=== PATIENT | male | born 1985 | race Caucasian/White ===

== ENCOUNTER 2017-06-29 19:13 | Inpatient (IN) | payer MEDICARE, MEDICAID ==
[~2017-06-29] VITALS: Ht 170.2 cm; Wt 75.0 kg
[~2017-06-29 19:13] MED LIST: DIVA125T3 PO
[2017-06-29] MEDS ORDERED: normal saline 1000ml 1,000 ML IV ONE ×2 (19:40→21:15)
[2017-06-29] MEDS ORDERED: levetiracetam inj 1,000 MG in normal saline 100ml IV soln 90 ML IV ONE (19:40)
[2017-06-29 19:59] LABS: BASOPHILS # (AUTO) 0.1 X10'3 (0-0.2); BASOPHILS % (AUTO) 0.9 % (0-1); EOSINOPHILS # (AUTO) 0.3 X10'3 (0-0.9); EOSINOPHILS % (AUTO) 1.9 % (0-6); HEMATOCRIT 44.9 % (42.0-52.0); HEMOGLOBIN 15.4 g/dl (14.0-17.9); LYMPHOCYTES % (AUTO) 6.6 % (21-51); MEAN CORPUSCULAR HGB CONC 34.2 % (33.0-36.5); MEAN CORPUSCULAR VOLUME 93.8 FL (78-98); MEAN PLATELET VOLUME 8.5 FL (7.4-10.4); MONOCYTES # (AUTO) 0.2 X10'3 (0-0.9); MONOCYTES % (AUTO) 1.3 % (2-12); NEUTROPHILS # (AUTO) 14.1 X10'3 (1.8-7.7); NEUTROPHILS % (AUTO) 89.3 % (42-75); PLATELET COUNT 234 X10'3 (140-440); RED BLOOD COUNT 4.79 X10'6 (4.70-6.10); RED CELL DISTRIBUTION WIDTH 12.8 % (11.5-14.5); WHITE BLOOD COUNT 15.8 X10'3 (4.5-11.0)
[2017-06-29 20:10] LABS: PROTHROMBIN TIME 10.7 SECONDS (9.0-12.0)
[2017-06-29] MEDS ORDERED: LORazepam 2 mg/ml vial IV ONE ×2 (20:10→21:15)
[2017-06-29 20:15] LABS: ALANINE AMINOTRANSFERASE 21 U/L (12-78); ALBUMIN 4.6 G/DL (3.4-5.0); ALBUMIN/GLOBULIN RATIO 1.2 (1.1-1.5); ALKALINE PHOSPHATASE 57 IU/L (46-116); ANION GAP 22 (8-16); ASPARTATE AMINO TRANSFERASE 19 U/L (10-37); BILIRUBIN,TOTAL 0.3 MG/DL (0.1-1.0); BLOOD UREA NITROGEN 14 MG/DL (7-18); BUN/CREATININE RATIO 12.2 (5.4-32.0); CALCIUM 8.9 MG/DL (8.5-10.1); CHLORIDE 102 MMOL/L (99-107); CREATINE KINASE 132 U/L (39-308); CREATININE 1.15 MG/DL (0.60-1.10); ETHANOL < 0.010 GM/DL (0.0-0.010); GLUCOSE 223 MG/DL (70-104); MAGNESIUM 2.5 MG/DL (1.5-2.4); PHOSPHORUS 3.1 MG/DL (2.3-4.5); POTASSIUM 3.6 MMOL/L (3.5-5.1); SODIUM 140 MMOL/L (135-145); TOTAL CARBON DIOXIDE 16.4 MMOL/L (24-32); TOTAL PROTEIN 8.3 G/DL (6.4-8.2); eGFR 73 ML/MIN
[2017-06-29 21:37] LABS: CLARITY,URINE SLIGHTLY CLOUDY (Clear); COLOR,URINE YELLOW (Yellow); GLUCOSE, URINE NEGATIVE (Neg); KETONES,URINE TRACE mg/dl (Neg); LEUKOCYTE ESTERASE ,URINE NEGATIVE (Neg); NITRITES, URINE NEGATIVE (Neg); OCCULT BLOOD,URINE SMALL (Neg); PH,URINE 5.5 (4.8-8.0); PROTEIN,URINE 30 mg/dl (Neg); UROBILINOGEN,URINE 0.2 E.U/dL (0.2-1.0)
[2017-06-29 21:42] LABS: BASOPHILS % (AUTO) 0 % (0-1); EOSINOPHILS # (AUTO) 0.3 X10'3 (0-0.9); EOSINOPHILS % (AUTO) 1.4 % (0-6); HEMATOCRIT 40.6 % (42.0-52.0); HEMOGLOBIN 14.1 g/dl (14.0-17.9); LYMPHOCYTES # (AUTO) 0.9 X10'3 (1.1-4.8); LYMPHOCYTES % (AUTO) 4.2 % (21-51); MEAN CORPUSCULAR HEMOGLOBIN 32.2 PG (27.0-31.0); MEAN CORPUSCULAR HGB CONC 34.7 % (33.0-36.5); MEAN CORPUSCULAR VOLUME 92.8 FL (78-98); MONOCYTES # (AUTO) 1.1 X10'3 (0-0.9); MONOCYTES % (AUTO) 5.2 % (2-12); NEUTROPHILS # (AUTO) 19.5 X10'3 (1.8-7.7); NEUTROPHILS % (AUTO) 89.2 % (42-75); PLATELET COUNT 200 X10'3 (140-440); RED BLOOD COUNT 4.37 X10'6 (4.70-6.10); RED CELL DISTRIBUTION WIDTH 12.7 % (11.5-14.5); WHITE BLOOD COUNT 21.9 X10'3 (4.5-11.0)
[2017-06-29 21:48] LABS: URINE AMPHETAMINE SCREEN NEGATIVE (Neg); URINE BARBITUATE SCREEN NEGATIVE (Neg); URINE BENZODIAZEPINES SCREEN POSITIVE (Neg); URINE CANNABINOID SCREEN POSITIVE (Neg); URINE COCAINE SCREEN NEGATIVE (Neg); URINE METHADONE SCREEN NEGATIVE (Neg); URINE OPIATE SCREEN NEGATIVE (Neg); URINE PHENCYCLIDINE SCREEN NEGATIVE (Neg)
[2017-06-29 21:50] LABS: AMORPHOUS URATES 2+; BACTERIA,URINE FEW /HPF (Neg); RBC,URINE 0-2 /HPF (0-2); SQUAMOUS EPITHELIAL CELL,UR FEW /LPF (FEW); UA COLLECTION TYPE STRAIGHT CATH; WBC,URINE NONE SEEN /HPF (0-4)
[2017-06-29] MEDS ORDERED: dexamethasone sod phosphate 10mg/ml inj IV STA (21:57)
[2017-06-29] MEDS ORDERED: propofol 1000mg/100ml bottle 100 ML IV PRN (21:57)
[2017-06-29] MEDS ORDERED: CefTRIAXone 2gm/NS 100ml IVPB 100 ML IV ONE (22:00)
[2017-06-29] MEDS ORDERED: normal saline 1000ML IV soln IVB ONE (22:55)
[2017-06-29] MEDS ORDERED: acetaminophen 325mg rectal suppository RC ONE (23:15)
[2017-06-29] MEDS ORDERED: acetaminophen 650mg rectal suppository RC ONE (23:20)
[2017-06-29 23:37] LABS: C-REACTIVE PROTEIN 0.13 MG/DL (0.0-0.5)
[2017-06-30] VITALS (19 sets, daily range): BP systolic 92–125; BP diastolic 44–68
[2017-06-30 00:37] LABS: APPEARANCE,CSF CLEAR; CSF RBC 170 /CU MM (0); CSF SUPERNATANT COLOR COLORLESS; CSF VOLUME 6 ML; CSF WBC CT 3 /CU MM (0-5); LYMPHOCYTES,CSF 15 % (40-80); MONOCYTES,CSF 4 % (15-45); NEUTRO,CSF 81 % (0-6); TUBE# COUNTED 1
[2017-06-30 00:38] LABS: APPEARANCE,CSF CLEAR; CSF RBC 209 /CU MM (0); CSF SUPERNATANT COLOR COLORLESS; CSF VOLUME 6 ML; CSF WBC CT 5 /CU MM (0-5); LYMPHOCYTES,CSF 10 % (40-80); MONOCYTES,CSF 3 % (15-45); NEUTRO,CSF 87 % (0-6); TUBE# COUNTED 4
[2017-06-30 00:49] LABS: GLUCOSE,CSF 90 MG/DL (40-75); TOTAL PROTEIN,CSF 73 MG/DL (15-45)
[2017-06-30 00:54] LABS: ACETAMINOPHEN < 2.0 UG/ML (10-30); VALPROATE < 3.0 UG/ML (50-100)
[2017-06-30] MEDS ORDERED: potassium Cl 40MEQ/NS 500ml 500 ML IV PRN ×2 (01:35)
[2017-06-30] MEDS ORDERED: sodium phosphate inj. 15 MMOL in dextrose 5%-water 150 ML IV PRN (01:35)
[2017-06-30] MEDS ORDERED: magnesium 4gm in 100ml NS 100 ML IV PRN (01:35)
[2017-06-30] MEDS ORDERED: magnesium 2GM in 50ml NS 50 ML IV PRN (01:35)
[2017-06-30] MEDS ORDERED: sodium phosphate inj. 30 MMOL in dextrose 5%-water 250 ML IV PRN (01:35)
[2017-06-30] MEDS: K, MAG and/or Phos replacement - Verify level? MC SCH ×2 (01:35→07:14)
[2017-06-30] MEDS ORDERED: vancomycin inj. 750 MG in normal saline 250ml IV soln 250 ML IV SCH (02:00)
[2017-06-30] MEDS ORDERED: vancomycin/NS 1 GM ADD-VANTAGE 250 ML IV ONE (02:10)
[2017-06-30] MEDS: normal saline 1000ml 1,000 ML IV SCH ×2 (02:16→14:55)
[2017-06-30] MEDS ORDERED: acyclovir 1 GM inj IV SCH (08:00)
[2017-06-30] MEDS ORDERED: pantoprazole 40 MG vial IV SCH (08:00)
[2017-06-30] MEDS: levetiracetam inj 500 MG in normal saline 100ml IV soln 95 ML IV SCH ×2 (09:57→20:19)
[2017-06-30] MEDS: NORMAL SALINE IV SCH ×2 (10:15→15:37)
[2017-06-30] MEDS: ACYCLOVIR IV SCH ×2 (10:15→15:37)
[2017-06-30] MEDS: vancomycin/NS 1 GM ADD-VANTAGE 250 ML IV SCH ×2 (11:13→17:30)
[2017-06-30] MEDS: CefTRIAXone 2gm/NS 100ml IVPB 100 ML IV SCH ×2 (12:43→20:19)
[2017-06-30] MEDS ORDERED: gadopentetate dimeglumine 7.5 MMOL/15 ML syringe ONE (16:13)
[2017-06-30 19:46] LABS: BASOPHILS # (AUTO) 0.1 X10'3 (0-0.2); BASOPHILS % (AUTO) 0.5 % (0-1); EOSINOPHILS # (AUTO) 0.1 X10'3 (0-0.9); EOSINOPHILS % (AUTO) 0.6 % (0-6); HEMATOCRIT 35.7 % (42.0-52.0); HEMOGLOBIN 12.5 g/dl (14.0-17.9); LYMPHOCYTES # (AUTO) 1.8 X10'3 (1.1-4.8); LYMPHOCYTES % (AUTO) 11.2 % (21-51); MEAN CORPUSCULAR HEMOGLOBIN 32.5 PG (27.0-31.0); MEAN CORPUSCULAR VOLUME 92.9 FL (78-98); MEAN PLATELET VOLUME 8.9 FL (7.4-10.4); MONOCYTES # (AUTO) 1.2 X10'3 (0-0.9); MONOCYTES % (AUTO) 7.4 % (2-12); NEUTROPHILS % (AUTO) 80.3 % (42-75); PLATELET COUNT 175 X10'3 (140-440); RED BLOOD COUNT 3.85 X10'6 (4.70-6.10); WHITE BLOOD COUNT 16.2 X10'3 (4.5-11.0)
[2017-06-30 20:03] LABS: ALANINE AMINOTRANSFERASE 21 U/L (12-78); ALBUMIN 3.3 G/DL (3.4-5.0); ALBUMIN/GLOBULIN RATIO 1.1 (1.1-1.5); ALKALINE PHOSPHATASE 40 IU/L (46-116); ANION GAP 9 (8-16); ASPARTATE AMINO TRANSFERASE 24 U/L (10-37); BILIRUBIN,TOTAL 0.5 MG/DL (0.1-1.0); BLOOD UREA NITROGEN 17 MG/DL (7-18); BUN/CREATININE RATIO 22.1 (5.4-32.0); CALCIUM 8.1 MG/DL (8.5-10.1); CHLORIDE 111 MMOL/L (99-107); CREATININE 0.77 MG/DL (0.60-1.10); GLUCOSE 93 MG/DL (70-104); POTASSIUM 3.5 MMOL/L (3.5-5.1); SODIUM 146 MMOL/L (135-145); TOTAL CARBON DIOXIDE 26.1 MMOL/L (24-32); TOTAL PROTEIN 6.3 G/DL (6.4-8.2); eGFR > 90 ML/MIN
[2017-06-30] MEDS ORDERED: normal saline 1000ml 1,000 ML IVB ONE (23:15)
[2017-07-01] VITALS: BP 149/89
[2017-07-01] MEDS ORDERED: VANCOMYCIN LEVEL IV NR (01:30)
[2017-07-01 02:39] LABS: C-REACTIVE PROTEIN 0.86 MG/DL (0.0-0.5)
[2017-07-01] MEDS ORDERED: lactobacillus rhamnosus 10,000 MMU CELLS/CAPSULE PO SCH (08:00)
[2017-07-01 14:10] LABS: HIV ANTIBODY 1&2 RAPID NON-REACTIVE (Neg)
[2017-07-03 11:17] LABS: VDRL, CSF Non Reactive (Non Rea:<1:1)
[2017-07-03 19:11] LABS: HSV 1 PCR Negative (Negative); HSV 2 PCR Negative (Negative)
== END 2017-07-01 00:15 | disposition left against medical advice (07) | DRG 97 ==
LOC: ER 19:13 → ED HOLD 06-30 01:35 → ICU 2S 06-30 02:40
PROVIDERS: ADMIT Internal Medicine Critical Care Medicine; ATTEND Internal Medicine Critical Care Medicine
PROC: 009U3ZZ Drainage of Spinal Canal, Percutaneous Approach (ICD-10-PCS; principal; 2017-06-29)
PROC: BW38YZZ Magnetic Resonance Imaging (MRI) of Head using Other Contrast (ICD-10-PCS; 2017-06-30)
DX: G03.9 Meningitis, unspecified (principal); B00.4 Herpesviral encephalitis; G93.89 Other specified disorders of brain; Z53.21 Procedure and treatment not carried out due to patient leaving prior to being seen by health care provider; G89.29 Other chronic pain; F32.9 Major depressive disorder, single episode, unspecified; F41.9 Anxiety disorder, unspecified; G40.909 Epilepsy, unspecified, not intractable, without status epilepticus; F12.90 Cannabis use, unspecified, uncomplicated; Z78.1 Physical restraint status; Z88.0 Allergy status to penicillin; Z88.2 Allergy status to sulfonamides; Z88.8 Allergy status to other drugs, medicaments and biological substances; Z91.030 Bee allergy status; Z79.899 Other long term (current) drug therapy; Z86.73 Personal history of transient ischemic attack (TIA), and cerebral infarction without residual deficits
CPT/HCPCS: 36415; 62270; 70450; 70544; 70553; 71045; 80053; 80164; 80305; 80320; 80329; 81001; 82550; 82945; 82948; 83605; 83735; 84100; 84145; 84157; 84439; 84443; 85025; 85610; 85651; 86140; 86592; 86703; 86788; 86789; 87015; 87040; 87070; 87210; 87529; 87899; 89051; 93005; 96361; 96365; 96375; 96376; 97162; 97530; 99152; 99153; 99291; A4353; A6213; A9579; C9113; J0133; J0696; J1100; J1953; J2704; J3370; J7030

== ENCOUNTER 2018-07-12 04:51 | Emergency (ER) | payer MEDICARE, MEDICAID ==
[~2018-07-12] VITALS: Ht 170.2 cm; Wt 59.1 kg
[~2018-07-12 04:51] MED LIST changes: -DIVA125T3 PO; +LEVE10002 PO
[2018-07-12] MEDS ORDERED: LORazepam 2 mg/ml vial IV ONE (05:10)
[2018-07-12 05:23] LABS: BASOPHILS # (AUTO) 0.1 X10'3 (0-0.2); BASOPHILS % (AUTO) 0.9 % (0-1); EOSINOPHILS # (AUTO) 0.2 X10'3 (0-0.9); EOSINOPHILS % (AUTO) 2.3 % (0-6); HEMATOCRIT 43.8 % (42.0-52.0); HEMOGLOBIN 15.4 g/dl (14.0-17.9); LYMPHOCYTES # (AUTO) 2.5 X10'3 (1.1-4.8); LYMPHOCYTES % (AUTO) 28.9 % (21-51); MEAN CORPUSCULAR HEMOGLOBIN 32.8 PG (27.0-31.0); MEAN CORPUSCULAR HGB CONC 35.1 g/dL (33.0-36.5); MEAN CORPUSCULAR VOLUME 93.5 FL (78-98); MEAN PLATELET VOLUME 8.8 FL (7.4-10.4); MONOCYTES # (AUTO) 0.7 X10'3 (0-0.9); MONOCYTES % (AUTO) 7.6 % (2-12); NEUTROPHILS # (AUTO) 5.2 X10'3 (1.8-7.7); NEUTROPHILS % (AUTO) 60.3 % (42-75); PLATELET COUNT 243 X10'3 (140-440); RED BLOOD COUNT 4.69 X10'6 (4.70-6.10); RED CELL DISTRIBUTION WIDTH 12.6 % (11.5-14.5); WHITE BLOOD COUNT 8.6 X10'3 (4.5-11.0)
[2018-07-12 05:28] LABS: ALANINE AMINOTRANSFERASE 21 U/L (12-78); ALBUMIN 4.1 G/DL (3.4-5.0); ALBUMIN/GLOBULIN RATIO 1.1 (1.1-1.5); ALKALINE PHOSPHATASE 64 IU/L (46-116); ANION GAP 11 (8-16); ASPARTATE AMINO TRANSFERASE 19 U/L (10-37); BILIRUBIN,TOTAL 0.5 MG/DL (0.1-1.0); BLOOD UREA NITROGEN 18 MG/DL (7-18); BUN/CREATININE RATIO 15.5 (5.4-32.0); CALCIUM 9.4 MG/DL (8.5-10.1); CHLORIDE 104 MMOL/L (99-107); CREATININE 1.16 MG/DL (0.60-1.10); GLUCOSE 142 MG/DL (70-104); POTASSIUM 3.4 MMOL/L (3.5-5.1); SODIUM 142 MMOL/L (135-145); TOTAL CARBON DIOXIDE 27.4 MMOL/L (24-32); TOTAL PROTEIN 7.8 G/DL (6.4-8.2); eGFR 72 ML/MIN
[2018-07-12 05:29] LABS: INR 1.1 INR; PROTHROMBIN TIME 10.7 SECONDS (9.0-12.0)
[2018-07-12 05:38] LABS: LIPASE 238 U/L (73-393)
[2018-07-12 06:09] VITALS: BP 100/58
== END 2018-07-12 06:13 | disposition home or self-care (01) ==
LOC: ER 04:52
DX: R10.84 Generalized abdominal pain (principal); R11.2 Nausea with vomiting, unspecified; G89.29 Other chronic pain; F17.200 Nicotine dependence, unspecified, uncomplicated; F12.90 Cannabis use, unspecified, uncomplicated; F15.90 Other stimulant use, unspecified, uncomplicated; Z56.0 Unemployment, unspecified; Z88.1 Allergy status to other antibiotic agents; Z88.0 Allergy status to penicillin; Z88.2 Allergy status to sulfonamides
CPT/HCPCS: 36415; 80053; 83690; 85025; 85610; 93005; 96374; 99284; J2060

== ENCOUNTER 2018-07-31 07:54 | Emergency (ER) | payer MEDICARE, MEDICAID ==
[~2018-07-31] VITALS: Ht 170.2 cm; Wt 61.0 kg
[2018-07-31 08:04] VITALS: BP 119/83
[2018-07-31 10:13] LABS: BASOPHILS # (AUTO) 0.1 X10'3 (0-0.2); BASOPHILS % (AUTO) 0.9 % (0-1); EOSINOPHILS # (AUTO) 0.2 X10'3 (0-0.9); EOSINOPHILS % (AUTO) 2.1 % (0-6); HEMATOCRIT 45.7 % (42.0-52.0); HEMOGLOBIN 15.6 g/dl (14.0-17.9); LYMPHOCYTES # (AUTO) 1.6 X10'3 (1.1-4.8); LYMPHOCYTES % (AUTO) 19.9 % (21-51); MEAN CORPUSCULAR HEMOGLOBIN 32.3 PG (27.0-31.0); MEAN CORPUSCULAR HGB CONC 34.2 g/dL (33.0-36.5); MEAN CORPUSCULAR VOLUME 94.6 FL (78-98); MEAN PLATELET VOLUME 8.3 FL (7.4-10.4); MONOCYTES # (AUTO) 0.5 X10'3 (0-0.9); MONOCYTES % (AUTO) 6.8 % (2-12); NEUTROPHILS # (AUTO) 5.5 X10'3 (1.8-7.7); NEUTROPHILS % (AUTO) 70.3 % (42-75); PLATELET COUNT 274 X10'3 (140-440); RED BLOOD COUNT 4.83 X10'6 (4.70-6.10); RED CELL DISTRIBUTION WIDTH 12.8 % (11.5-14.5); WHITE BLOOD COUNT 7.9 X10'3 (4.5-11.0)
[2018-07-31] MEDS ORDERED: TETanus/Pertussis (Acell)/Diphther VAC/PF (Tdap-Adult) 0.5ml syringe IM ONE (10:20)
[2018-07-31 10:31] LABS: PARTIAL THROMBOPLASTIN TIME 30 SECONDS (22-32); PROTHROMBIN TIME 10.2 SECONDS (9.0-12.0)
[2018-07-31 10:53] LABS: CHLORIDE 105 MMOL/L (99-107); POTASSIUM 4.1 MMOL/L (3.5-5.1)
[2018-07-31 11:34] LABS: ALANINE AMINOTRANSFERASE 35 U/L (12-78); ALBUMIN/GLOBULIN RATIO 1.2 (1.1-1.5); ALKALINE PHOSPHATASE 62 IU/L (46-116); ANION GAP 9 (8-16); ASPARTATE AMINO TRANSFERASE 22 U/L (10-37); BILIRUBIN,TOTAL 0.4 MG/DL (0.1-1.0); BLOOD UREA NITROGEN 14 MG/DL (7-18); BUN/CREATININE RATIO 18.7 (5.4-32.0); CALCIUM 8.7 MG/DL (8.5-10.1); CREATININE 0.75 MG/DL (0.60-1.10); GLUCOSE 97 MG/DL (70-104); SODIUM 139 MMOL/L (135-145); TOTAL CARBON DIOXIDE 25.3 MMOL/L (24-32); TOTAL PROTEIN 7.4 G/DL (6.4-8.2); eGFR > 90 ML/MIN
== END 2018-07-31 11:27 | disposition home or self-care (01) ==
LOC: ER 07:55
DX: S01.112A Laceration without foreign body of left eyelid and periocular area, initial encounter (principal); R56.9 Unspecified convulsions; R79.1 Abnormal coagulation profile; G89.29 Other chronic pain; F12.90 Cannabis use, unspecified, uncomplicated; F15.90 Other stimulant use, unspecified, uncomplicated; Z88.0 Allergy status to penicillin; Z88.2 Allergy status to sulfonamides; Z91.030 Bee allergy status; Z56.0 Unemployment, unspecified; Z79.899 Other long term (current) drug therapy; Z87.19 Personal history of other diseases of the digestive system; Z98.890 Other specified postprocedural states; Z86.14 Personal history of Methicillin resistant Staphylococcus aureus infection; W22.8XXA Striking against or struck by other objects, initial encounter; Y93.89 Activity, other specified; Y92.89 Other specified places as the place of occurrence of the external cause; Y99.8 Other external cause status
CPT/HCPCS: 12011; 36415; 80053; 85025; 85610; 85730; 90471; 90715; 93005; 99284

== ENCOUNTER 2018-08-08 01:54 | Emergency (ER) | payer MEDICARE, MEDICAID ==
[~2018-08-08] VITALS: Ht 170.2 cm; Wt 60.0 kg
[2018-08-08 02:05] VITALS: BP 112/67
[2018-08-08] MEDS ORDERED: levetiracetam 100mg/ml oral solution 5ml UD cup PO ONE (02:30)
[2018-08-08] MEDS ORDERED: ondansetron 4mg rapidly disintigrating tab PO ONE (02:35)
== END 2018-08-08 02:52 | disposition home or self-care (01) ==
LOC: ER 01:54
DX: S01.80XA Unspecified open wound of other part of head, initial encounter (principal); G40.909 Epilepsy, unspecified, not intractable, without status epilepticus; F41.9 Anxiety disorder, unspecified; F32.9 Major depressive disorder, single episode, unspecified; G89.29 Other chronic pain; F12.10 Cannabis abuse, uncomplicated; F15.10 Other stimulant abuse, uncomplicated; Z88.0 Allergy status to penicillin; Z88.2 Allergy status to sulfonamides; Z88.1 Allergy status to other antibiotic agents; Z56.0 Unemployment, unspecified; W07.XXXA Fall from chair, initial encounter; Y93.89 Activity, other specified; Y92.89 Other specified places as the place of occurrence of the external cause; Y99.8 Other external cause status
CPT/HCPCS: 99283

== ENCOUNTER 2018-11-21 16:09 | Emergency (ER) | payer MEDICARE, MEDICAID ==
[~2018-11-21] VITALS: Ht 170.2 cm; Wt 61.0 kg
--- NOTE | 2018-11-21 16:14 | NUR ---
SEIZURE PADS ON.
--- NOTE | 2018-11-21 17:00 | NUR ---
PER PATIENT'S SPOUSE,PATIENT IS HAVING A SEZURE,PRIMARY RN WALKED IN THE ROOM,PATIENT APPEARED TO BE SPACED OUT,RN ASKED IF HE IS OK,PATIENT NODDED,PER SPOUSE "YOU CAN HAVE A CONVERSATION WITH HIM" WHILE HE'S HAVING SEIZURE,DR. PERALTA MADE AWARE.
[2018-11-21 18:13] VITALS: BP 99/54
== END 2018-11-21 19:20 | disposition home or self-care (01) ==
LOC: ER 16:09
DX: S00.83XA Contusion of other part of head, initial encounter (principal); S20.212A Contusion of left front wall of thorax, initial encounter; R56.9 Unspecified convulsions; M25.522 Pain in left elbow; G89.29 Other chronic pain; F41.9 Anxiety disorder, unspecified; F32.9 Major depressive disorder, single episode, unspecified; F12.90 Cannabis use, unspecified, uncomplicated; F15.90 Other stimulant use, unspecified, uncomplicated; Z88.0 Allergy status to penicillin; Z79.899 Other long term (current) drug therapy; Z86.14 Personal history of Methicillin resistant Staphylococcus aureus infection; Z98.890 Other specified postprocedural states; Z88.5 Allergy status to narcotic agent; Z88.1 Allergy status to other antibiotic agents; Z56.0 Unemployment, unspecified; Y04.0XXA Assault by unarmed brawl or fight, initial encounter; Y93.89 Activity, other specified; Y92.89 Other specified places as the place of occurrence of the external cause; Y99.8 Other external cause status
CPT/HCPCS: 70450; 70486; 71101; 93005; 99284

== ENCOUNTER 2019-03-19 14:42 | Emergency (ER) | payer MEDICARE, MEDICAID ==
[~2019-03-19] VITALS: Ht 172.7 cm; Wt 58.0 kg
[2019-03-19 15:21] LABS: BASOPHILS % (AUTO) 0.1 % (0-1); EOSINOPHILS # (AUTO) 0.1 X10'3 (0-0.9); EOSINOPHILS % (AUTO) 0.7 % (0-6); HEMOGLOBIN 15.7 g/dl (14.0-17.9); LYMPHOCYTES # (AUTO) 0.3 X10'3 (1.1-4.8); LYMPHOCYTES % (AUTO) 2.8 % (21-51); MEAN CORPUSCULAR HGB CONC 34.9 g/dL (33.0-36.5); MEAN CORPUSCULAR VOLUME 97.5 FL (78-98); MEAN PLATELET VOLUME 8.4 FL (7.4-10.4); MONOCYTES # (AUTO) 0.4 X10'3 (0-0.9); NEUTROPHILS # (AUTO) 8.9 X10'3 (1.8-7.7); NEUTROPHILS % (AUTO) 92.4 % (42-75); PLATELET COUNT 196 X10'3 (140-440); RED BLOOD COUNT 4.61 X10'6 (4.70-6.10); RED CELL DISTRIBUTION WIDTH 12.4 % (11.5-14.5); WHITE BLOOD COUNT 9.6 X10'3 (4.5-11.0)
[2019-03-19 15:36] LABS: ALANINE AMINOTRANSFERASE 19 U/L (12-78); ALBUMIN 4.4 G/DL (3.4-5.0); ALBUMIN/GLOBULIN RATIO 1.3 (1.1-1.5); ALKALINE PHOSPHATASE 74 IU/L (46-116); ANION GAP 10 (8-16); ASPARTATE AMINO TRANSFERASE 19 U/L (10-37); BILIRUBIN,TOTAL 0.4 MG/DL (0.1-1.0); BLOOD UREA NITROGEN 16 MG/DL (7-18); BUN/CREATININE RATIO 21.1 (5.4-32.0); CALCIUM 9.1 MG/DL (8.5-10.1); CHLORIDE 102 MMOL/L (99-107); CREATININE 0.76 MG/DL (0.60-1.10); GLUCOSE 105 MG/DL (70-104); POTASSIUM 3.9 MMOL/L (3.5-5.1); SODIUM 140 MMOL/L (135-145); TOTAL CARBON DIOXIDE 28.3 MMOL/L (24-32); TOTAL PROTEIN 7.7 G/DL (6.4-8.2); eGFR > 90 ML/MIN
[2019-03-19] MEDS ORDERED: proCHLORperazine 10 MG/2 ml inj IV ONE (16:15)
[2019-03-19] MEDS ORDERED: normal saline 1000ML IV soln IVB ONE (16:15)
[2019-03-19] MEDS ORDERED: LORazepam 2 mg/ml vial IV ONE (16:15)
[2019-03-19] MEDS ORDERED: famotidine/PF 10 mg/ml inj IV ONE (16:15)
[2019-03-19] MEDS ORDERED: ondansetron/PF 4mg/2ml inj IV ONE (16:15)
[2019-03-19] MEDS ORDERED: ketorolac trometh. 30mg/ml inj. IV ONE (16:15)
--- NOTE | 2019-03-19 16:58 | NUR ---
dr bailey stated no need for UA at this time.
--- NOTE | 2019-03-19 17:01 | NUR ---
CALLED PT AND LEFT MESSAGE (GIOVANI [phone]) PER PT REQUEST.
--- NOTE | 2019-03-19 17:07 | NUR ---
SPOKE WTIH GIOVANI PT , STATED SHE IS AT WORK FOR THE NEXT HOUR AND WILL COME TO GET AFTER SHE GETS OFF WORK.
[2019-03-19] MEDS ORDERED: pantoprazole 40 MG vial IV ONE (17:15)
[2019-03-19] MEDS ORDERED: PANT-47 PO (17:17)
[2019-03-19] MEDS ORDERED: ONDA8TAB6 PO (17:17)
[2019-03-19 19:07] VITALS: BP 109/69
[2019-03-19 19:22] LABS: CLARITY,URINE CLEAR (Clear); COLOR,URINE YELLOW (Yellow); GLUCOSE, URINE NEGATIVE (Neg); KETONES,URINE 15 mg/dl (Neg); LEUKOCYTE ESTERASE ,URINE NEGATIVE (Neg); NITRITES, URINE NEGATIVE (Neg); OCCULT BLOOD,URINE NEGATIVE (Neg); PH,URINE >=9.0 (4.8-8.0); PROTEIN,URINE NEGATIVE (Neg); UROBILINOGEN,URINE 0.2 E.U/dL (0.2-1.0)
[2019-03-19 19:25] LABS: UA COLLECTION TYPE NON-SPECIFIED
== END 2019-03-19 19:18 | disposition home or self-care (01) ==
LOC: ER 14:42
DX: K29.00 Acute gastritis without bleeding (principal); G89.29 Other chronic pain; F41.9 Anxiety disorder, unspecified; F32.9 Major depressive disorder, single episode, unspecified; F12.90 Cannabis use, unspecified, uncomplicated; F15.90 Other stimulant use, unspecified, uncomplicated; Z86.69 Personal history of other diseases of the nervous system and sense organs; Z98.890 Other specified postprocedural states; Z56.0 Unemployment, unspecified
CPT/HCPCS: 36415; 80053; 81003; 85025; 96361; 96374; 96375; 99284; C9113; J0780; J1885; J2060; J2405; J3490; J7030

== ENCOUNTER 2019-04-03 10:02 | Emergency (ER) | payer MEDICARE, MEDICAID ==
[~2019-04-03] VITALS: Ht 172.7 cm; Wt 61.4 kg
[~2019-04-03 10:02] MED LIST changes: +ONDA8TAB6 PO; +PANT-47 PO
[2019-04-03] MEDS ORDERED: LORazepam 2 mg/ml vial IV ONE (11:05)
[2019-04-03] MEDS ORDERED: normal saline 1000ML IV soln IVB ONE (11:05)
[2019-04-03] MEDS ORDERED: levetiracetam inj 1,000 MG in normal saline 100ml IV soln 90 ML IV ONE (11:05)
[2019-04-03 11:58] LABS: BASOPHILS # (AUTO) 0.1 X10'3 (0-0.2); BASOPHILS % (AUTO) 0.8 % (0-1); EOSINOPHILS # (AUTO) 0.1 X10'3 (0-0.9); EOSINOPHILS % (AUTO) 0.7 % (0-6); HEMATOCRIT 41.8 % (42.0-52.0); HEMOGLOBIN 14.7 g/dl (14.0-17.9); LYMPHOCYTES # (AUTO) 0.9 X10'3 (1.1-4.8); LYMPHOCYTES % (AUTO) 10.2 % (21-51); MEAN CORPUSCULAR HGB CONC 35.1 g/dL (33.0-36.5); MEAN CORPUSCULAR VOLUME 96.9 FL (78-98); MEAN PLATELET VOLUME 8.7 FL (7.4-10.4); MONOCYTES # (AUTO) 0.5 X10'3 (0-0.9); MONOCYTES % (AUTO) 5.8 % (2-12); NEUTROPHILS # (AUTO) 7.4 X10'3 (1.8-7.7); NEUTROPHILS % (AUTO) 82.5 % (42-75); PLATELET COUNT 246 X10'3 (140-440); RED BLOOD COUNT 4.32 X10'6 (4.70-6.10); RED CELL DISTRIBUTION WIDTH 11.9 % (11.5-14.5)
[2019-04-03 12:24] LABS: ALANINE AMINOTRANSFERASE 26 U/L (12-78); ALBUMIN 3.8 G/DL (3.4-5.0); ALBUMIN/GLOBULIN RATIO 1.2 (1.1-1.5); ALKALINE PHOSPHATASE 66 IU/L (46-116); ANION GAP 6 (8-16); ASPARTATE AMINO TRANSFERASE 16 U/L (10-37); BILIRUBIN,TOTAL 0.2 MG/DL (0.1-1.0); BLOOD UREA NITROGEN 13 MG/DL (7-18); BUN/CREATININE RATIO 17.6 (5.4-32.0); CHLORIDE 106 MMOL/L (99-107); CREATININE 0.74 MG/DL (0.60-1.10); GLUCOSE 99 MG/DL (70-104); LIPASE 221 U/L (73-393); POTASSIUM 4.2 MMOL/L (3.5-5.1); SODIUM 140 MMOL/L (135-145); TOTAL CARBON DIOXIDE 28.5 MMOL/L (24-32); TOTAL PROTEIN 6.9 G/DL (6.4-8.2); eGFR > 90 ML/MIN
[2019-04-03 12:29] LABS: CALCIUM 8.5 MG/DL (8.5-10.1)
[2019-04-03 13:26] LABS: CARBAMAZEPINE (TEGRETOL) 1.9 UG/ML (4.0-12.0); ETHANOL < 0.010 GM/DL (0.0-0.010)
[2019-04-03 13:35] VITALS: BP 114/62
== END 2019-04-03 13:32 | disposition home or self-care (01) ==
LOC: ER 10:03
DX: S00.83XA Contusion of other part of head, initial encounter (principal); G40.909 Epilepsy, unspecified, not intractable, without status epilepticus; G89.29 Other chronic pain; F41.9 Anxiety disorder, unspecified; F32.9 Major depressive disorder, single episode, unspecified; F12.90 Cannabis use, unspecified, uncomplicated; F15.90 Other stimulant use, unspecified, uncomplicated; Z98.890 Other specified postprocedural states; Z86.14 Personal history of Methicillin resistant Staphylococcus aureus infection; Z56.0 Unemployment, unspecified; Z88.0 Allergy status to penicillin; Z88.2 Allergy status to sulfonamides; Z88.1 Allergy status to other antibiotic agents; Z79.899 Other long term (current) drug therapy; W18.39XA Other fall on same level, initial encounter; Y93.89 Activity, other specified; Y92.89 Other specified places as the place of occurrence of the external cause; Y99.8 Other external cause status
CPT/HCPCS: 36415; 70450; 80053; 80156; 80320; 82948; 83690; 85025; 96374; 99284; J2060; J7030; J1953

== ENCOUNTER 2019-05-03 11:30 | Emergency (ER) | payer MEDICARE, MEDICAID ==
[~2019-05-03] VITALS: Ht 170.2 cm; Wt 65.0 kg
[2019-05-03 11:45] VITALS: BP 118/76
[2019-05-03 12:19] LABS: BASOPHILS # (AUTO) 0.1 X10'3 (0-0.2); BASOPHILS % (AUTO) 0.3 % (0-1); EOSINOPHILS # (AUTO) 0.1 X10'3 (0-0.9); EOSINOPHILS % (AUTO) 0.5 % (0-6); HEMATOCRIT 43.7 % (42.0-52.0); LYMPHOCYTES # (AUTO) 0.9 X10'3 (1.1-4.8); LYMPHOCYTES % (AUTO) 5.1 % (21-51); MEAN CORPUSCULAR HEMOGLOBIN 32.7 PG (27.0-31.0); MEAN CORPUSCULAR HGB CONC 34.3 g/dL (33.0-36.5); MEAN CORPUSCULAR VOLUME 95.1 FL (78-98); MONOCYTES # (AUTO) 1.4 X10'3 (0-0.9); MONOCYTES % (AUTO) 7.9 % (2-12); NEUTROPHILS # (AUTO) 15.3 X10'3 (1.8-7.7); NEUTROPHILS % (AUTO) 86.2 % (42-75); PLATELET COUNT 257 X10'3 (140-440); RED CELL DISTRIBUTION WIDTH 12.5 % (11.5-14.5); WHITE BLOOD COUNT 17.7 X10'3 (4.5-11.0)
[2019-05-03 12:39] LABS: ALANINE AMINOTRANSFERASE 20 U/L (12-78); ALBUMIN 3.9 G/DL (3.4-5.0); ALKALINE PHOSPHATASE 90 IU/L (46-116); ANION GAP 6 (8-16); ASPARTATE AMINO TRANSFERASE 13 U/L (10-37); BILIRUBIN,TOTAL 0.3 MG/DL (0.1-1.0); BLOOD UREA NITROGEN 12 MG/DL (7-18); BUN/CREATININE RATIO 14.1 (5.4-32.0); CALCIUM 9.1 MG/DL (8.5-10.1); CHLORIDE 101 MMOL/L (99-107); CREATININE 0.85 MG/DL (0.60-1.10); GLUCOSE 107 MG/DL (70-104); POTASSIUM 4.1 MMOL/L (3.5-5.1); SODIUM 138 MMOL/L (135-145); TOTAL PROTEIN 7.9 G/DL (6.4-8.2); eGFR > 90 ML/MIN
== END 2019-05-03 13:29 | disposition left against medical advice (07) ==
LOC: ER 11:30
DX: R11.10 Vomiting, unspecified (principal); R53.83 Other fatigue; Z53.21 Procedure and treatment not carried out due to patient leaving prior to being seen by health care provider
CPT/HCPCS: 36415; 80053; 85025

== ENCOUNTER 2019-07-18 16:55 | Emergency (ER) | payer MEDICARE, MEDICAID ==
[~2019-07-18] VITALS: Ht 170.2 cm; Wt 59.1 kg
[2019-07-18] MEDS ORDERED: LORazepam 2 mg/ml vial IV ONE (17:25)
[2019-07-18 17:42] LABS: BASOPHILS # (AUTO) 0.1 X10'3 (0-0.2); BASOPHILS % (AUTO) 0.4 % (0-1); EOSINOPHILS % (AUTO) 0.1 % (0-6); HEMOGLOBIN 15.1 g/dl (14.0-17.9); LYMPHOCYTES # (AUTO) 0.8 X10'3 (1.1-4.8); LYMPHOCYTES % (AUTO) 4.1 % (21-51); MEAN CORPUSCULAR HEMOGLOBIN 33.2 PG (27.0-31.0); MEAN CORPUSCULAR HGB CONC 35.2 g/dL (33.0-36.5); MEAN CORPUSCULAR VOLUME 94.3 FL (78-98); MEAN PLATELET VOLUME 8.5 FL (7.4-10.4); MONOCYTES # (AUTO) 0.8 X10'3 (0-0.9); MONOCYTES % (AUTO) 4.3 % (2-12); NEUTROPHILS # (AUTO) 17.1 X10'3 (1.8-7.7); NEUTROPHILS % (AUTO) 91.1 % (42-75); PLATELET COUNT 217 X10'3 (140-440); RED BLOOD COUNT 4.56 X10'6 (4.70-6.10); WHITE BLOOD COUNT 18.7 X10'3 (4.5-11.0)
[2019-07-18 17:53] LABS: ALANINE AMINOTRANSFERASE 21 U/L (12-78); ALBUMIN 4.3 G/DL (3.4-5.0); ALBUMIN/GLOBULIN RATIO 1.3 (1.1-1.5); ALKALINE PHOSPHATASE 67 IU/L (46-116); ANION GAP 6 (8-16); ASPARTATE AMINO TRANSFERASE 20 U/L (10-37); BILIRUBIN,TOTAL 0.4 MG/DL (0.1-1.0); BLOOD UREA NITROGEN 13 MG/DL (7-18); CALCIUM 8.9 MG/DL (8.5-10.1); CHLORIDE 102 MMOL/L (99-107); CREATININE 0.81 MG/DL (0.60-1.10); GLUCOSE 119 MG/DL (70-104); POTASSIUM 3.9 MMOL/L (3.5-5.1); SODIUM 135 MMOL/L (135-145); TOTAL CARBON DIOXIDE 26.9 MMOL/L (24-32); TOTAL PROTEIN 7.6 G/DL (6.4-8.2); eGFR > 90 ML/MIN
[2019-07-18 17:55] LABS: CLARITY,URINE CLEAR (Clear); COLOR,URINE YELLOW (Yellow); GLUCOSE, URINE NEGATIVE (Neg); KETONES,URINE TRACE mg/dl (Neg); LEUKOCYTE ESTERASE ,URINE NEGATIVE (Neg); NITRITES, URINE NEGATIVE (Neg); OCCULT BLOOD,URINE NEGATIVE (Neg); PROTEIN,URINE NEGATIVE (Neg)
[2019-07-18] MEDS ORDERED: normal saline 1000ml 1,000 ML IV ONE (17:55)
[2019-07-18 17:57] LABS: UA COLLECTION TYPE STRAIGHT CATH
[2019-07-18 18:03] LABS: ETHANOL < 0.010 GM/DL (0.0-0.010); LIPASE 211 U/L (73-393)
[2019-07-18 18:48] LABS: URINE AMPHETAMINE SCREEN NEGATIVE (Neg); URINE BARBITUATE SCREEN NEGATIVE (Neg); URINE BENZODIAZEPINES SCREEN NEGATIVE (Neg); URINE CANNABINOID SCREEN POSITIVE (Neg); URINE COCAINE SCREEN NEGATIVE (Neg); URINE METHADONE SCREEN NEGATIVE (Neg); URINE OPIATE SCREEN NEGATIVE (Neg); URINE PHENCYCLIDINE SCREEN NEGATIVE (Neg)
--- NOTE | 2019-07-18 19:05 | NUR ---
PT SLEEPING AT THIS TIME IN A PRONE POSITION. PT AWAKENED. HE STATES "I WANT TO GO HOME." NO S/S OF RESPIRATORY DISTRESS. NO SEIZURES AT THIS TIME. 95% ON RA. PULSE 91. BP 99/63. PT HAS NO OTHER REQUEST OR CONCERNS AT THIS TIME.
--- NOTE | 2019-07-18 19:06 | NUR ---
SEIZURE PRECAUTIONS IN PLACE
[2019-07-18 19:50] LABS: CARBAMAZEPINE (TEGRETOL) 6.5 UG/ML (4.0-12.0)
[2019-07-18] MEDS ORDERED: ONDA4TAB6 PO (20:10)
[2019-07-18 20:34] VITALS: BP 104/58
== END 2019-07-18 20:37 | disposition home or self-care (01) ==
LOC: ER 16:57
DX: G40.909 Epilepsy, unspecified, not intractable, without status epilepticus (principal); F41.9 Anxiety disorder, unspecified; F32.9 Major depressive disorder, single episode, unspecified; F12.90 Cannabis use, unspecified, uncomplicated; F15.90 Other stimulant use, unspecified, uncomplicated; G89.29 Other chronic pain; Z86.14 Personal history of Methicillin resistant Staphylococcus aureus infection; Z56.0 Unemployment, unspecified; Z88.0 Allergy status to penicillin; Z88.2 Allergy status to sulfonamides; Z88.1 Allergy status to other antibiotic agents; Z79.899 Other long term (current) drug therapy
CPT/HCPCS: 36415; 70450; 71045; 80053; 80156; 80305; 80320; 81003; 83690; 85025; 93005; 96374; 99285; J2060; J7030

== ENCOUNTER 2019-09-09 14:50 | Observation (INO) | payer MEDICARE, MEDICAID ==
[~2019-09-09] VITALS: Ht 177.8 cm; Wt 55.0 kg
[~2019-09-09 14:50] MED LIST changes: +ONDA4TAB6 PO
[2019-09-09] MEDS ORDERED: LORazepam 2 mg/ml vial ONE (14:53)
[2019-09-09] MEDS ORDERED: levetiracetam inj 1,500 MG in normal saline 100ml IV soln 85 ML IV ONE (14:55)
[2019-09-09] MEDS ORDERED: normal saline 1000ML IV soln IVB ONE (14:55)
[2019-09-09] MEDS ORDERED: LORazepam 2 mg/ml vial IV ONE (14:55)
--- NOTE | 2019-09-09 15:05 | NUR ---
Restraints applied by EMS removed by the ED staff now that the seizure and postictal combativeness is stopped.
[2019-09-09 15:20] LABS: BASOPHILS % (AUTO) 0.5 % (0-1); EOSINOPHILS % (AUTO) 0.2 % (0-6); HEMATOCRIT 46.8 % (42.0-52.0); HEMOGLOBIN 15.3 g/dl (14.0-17.9); LYMPHOCYTES # (AUTO) 1.3 X10'3 (1.1-4.8); MEAN CORPUSCULAR HEMOGLOBIN 32.7 PG (27.0-31.0); MEAN CORPUSCULAR HGB CONC 32.8 g/dL (33.0-36.5); MEAN CORPUSCULAR VOLUME 99.9 FL (78-98); MEAN PLATELET VOLUME 9.3 FL (7.4-10.4); MONOCYTES # (AUTO) 0.2 X10'3 (0-0.9); MONOCYTES % (AUTO) 2.6 % (2-12); NEUTROPHILS # (AUTO) 6.6 X10'3 (1.8-7.7); NEUTROPHILS % (AUTO) 80.7 % (42-75); PLATELET COUNT 226 X10'3 (140-440); RED BLOOD COUNT 4.69 X10'6 (4.70-6.10); RED CELL DISTRIBUTION WIDTH 13.2 % (11.5-14.5); WHITE BLOOD COUNT 8.2 X10'3 (4.5-11.0)
[2019-09-09 15:39] LABS: ALANINE AMINOTRANSFERASE 7 U/L (12-78); ALBUMIN 4.7 G/DL (3.4-5.0); ALBUMIN/GLOBULIN RATIO 1.3 (1.1-1.5); ALKALINE PHOSPHATASE 82 IU/L (46-116); ANION GAP 28 (8-16); ASPARTATE AMINO TRANSFERASE 18 U/L (10-37); BILIRUBIN,TOTAL 0.3 MG/DL (0.1-1.0); BLOOD UREA NITROGEN 12 MG/DL (7-18); BUN/CREATININE RATIO 9.4 (5.4-32.0); CHLORIDE 103 MMOL/L (99-107); CREATININE 1.27 MG/DL (0.60-1.10); GLUCOSE 199 MG/DL (70-104); POTASSIUM 3.7 MMOL/L (3.5-5.1); SODIUM 142 MMOL/L (135-145); TOTAL PROTEIN 8.4 G/DL (6.4-8.2); eGFR 64 ML/MIN
[2019-09-09 15:55] LABS: TOTAL CARBON DIOXIDE 11.1 MMOL/L (24-32)
--- NOTE | 2019-09-09 16:19 | NUR ---
PT resting with even and unlabored respirations.
[2019-09-09 16:59] LABS: CLARITY,URINE CLEAR (Clear); COLOR,URINE YELLOW (Yellow); GLUCOSE, URINE NEGATIVE (Neg); KETONES,URINE NEGATIVE (Neg); LEUKOCYTE ESTERASE ,URINE NEGATIVE (Neg); NITRITES, URINE POSITIVE (Neg); PH,URINE 5.5 (4.8-8.0); UROBILINOGEN,URINE 0.2 E.U/dL (0.2-1.0)
[2019-09-09 17:09] LABS: OCCULT BLOOD,URINE TRACE-LYSED (Neg); PROTEIN,URINE TRACE mg/dl (Neg)
[2019-09-09 17:11] LABS: UA COLLECTION TYPE CLN CATCH MIDSTREAM
[2019-09-09 17:30] LABS: BACTERIA,URINE FEW /HPF (Neg); RBC,URINE 0-2 /HPF (0-2); SQUAMOUS EPITHELIAL CELL,UR FEW /LPF (FEW); WBC,URINE 0-4 /HPF (0-4)
--- NOTE | 2019-09-09 17:55 | NUR ---
Pt is beginning to wake up and is asking "what happened?" Explained to the patient that he came to the ED via ambulance for seizures.
--- NOTE | 2019-09-09 18:21 | NUR ---
ASKED WARREN GEORGES TO ASSIST IN WAKING THE PATIENT AND OBSERVE GAIT.
--- NOTE | 2019-09-09 18:26 | NUR ---
GIOVANI/ WIFES NUMBER- [phone]
--- NOTE | 2019-09-09 18:33 | NUR ---
RN AND TECH ATTEMPTED TO GET PATIENT UP; PT UNSTABLE AT THIS TIME BUT AWAKES WITH EASE. WILL UPDATE ED MD.
--- NOTE | 2019-09-09 18:49 | NUR ---
ED MD ATTEMPT TO TALK WITH PT; UNABLE TO HOLD CONVERSATION WITH PT. WILL BE ADMITTING FOR PROLONGED POSTICTAL. RN WILL CALL TO GET CURRENT MED LIST
--- NOTE | 2019-09-09 18:55 | NUR ---
UPDATED WITH PT'S STATUS AND ADMISSION; RN ABLE TO GET MED REC FROM
[2019-09-09] MEDS ORDERED: CARB-52 PO (18:56)
[2019-09-09] MEDS ORDERED: dextrose 5%-1/2 normal saline 1,000 ML IV SCH (19:22)
[2019-09-09 19:23] VITALS: BP 125/69
--- NOTE | 2019-09-09 19:24 | NUR ---
PT CONTINUES TO SLEEP BUT IS EASILY AROUSABLE; JUST NOT ABLE TO HOLD CONVERSATION WITH RN. PT CONTINUES TO BE ON SEIZURE PRECAUTIONS. WILL CONTINUE TO MONITOR.
[2019-09-09] MEDS ORDERED: mag hydrox/Alum hydrox/simeth 30ml oral suspension PO PRN (19:25)
[2019-09-09] MEDS ORDERED: acetaminophen 325mg tablet PO PRN ×2 (19:25)
[2019-09-09] MEDS ORDERED: HYDROcodone/acetaminophen 5mg/325mg tablet PO PRN (19:25)
[2019-09-09] MEDS ORDERED: magnesium hydroxide 30ml (MOM) UD suspension PO PRN (19:25)
[2019-09-09] MEDS ORDERED: ondansetron/PF 4mg/2ml inj IV PRN (19:25)
[2019-09-09] MEDS ORDERED: morphine 2 MG/ML inj. syringe IV PRN ×2 (19:25)
--- NOTE | 2019-09-09 20:14 | NUR ---
ATTEMPTED TO GIVE REPORT TO UNIT; RN TAKING PT WAS AT PHARMACY AND WILL TRY AGAIN IN A FEW MINUTES.
--- NOTE | 2019-09-09 20:45 | NUR ---
Pt came up to 360b vitals taken 93/53 HR 86 rr 16 96RA temp 98.4 denies pain. Expressed to aide that he wanted to leave. Nurse Carissa that had accepted pt was busy so I went into room to swab pt and talk about staying. I explained he needed to stay so we could monitor him for seizures overnight and give him new seizure medications. He said he wanted to get in his own bed and he didn't feel good. I told him we could give him meds to help him relax. We called his Joana and she talked with him about staying but ultimately she was coming to get him. He rolled over in the be pulled blankets over his head and went back to bed.
--- NOTE | 2019-09-09 21:30 | NUR ---
20g to [facility] dc'd pt put in WC and taked down to wifes car. AMA paperwork signed.
--- NOTE | 2019-09-09 21:30 | NUR ---
I spoke with Dr. Desir about pt leaving ama and on her way to pick him up. Told him about the education I gave him about staying vs leaving. No medications being prescribed. Joana said they were in the process of seeing his primary md but office was closed.
== END 2019-09-09 21:30 | disposition left against medical advice (07) ==
LOC: ER 14:50 → ED HOLD 19:22 → SUR 3N 20:43
PROVIDERS: ADMIT Internal Medicine; ATTEND Internal Medicine
DX: G40.309 Generalized idiopathic epilepsy and epileptic syndromes, not intractable, without status epilepticus (principal); G89.29 Other chronic pain; F41.9 Anxiety disorder, unspecified; F32.9 Major depressive disorder, single episode, unspecified; Z79.899 Other long term (current) drug therapy; Z88.0 Allergy status to penicillin; Z88.8 Allergy status to other drugs, medicaments and biological substances; Z91.030 Bee allergy status; Z88.2 Allergy status to sulfonamides; Z53.29 Procedure and treatment not carried out because of patient's decision for other reasons
CPT/HCPCS: 36415; 71045; 80053; 81001; 82948; 85025; 85610; 87088; 93005; 96365; 96375; 99291; G0378; J1953; J2060; J7030

== ENCOUNTER 2020-03-10 14:45 | Emergency (ER) | payer MEDICARE, MEDICAID ==
[~2020-03-10] VITALS: Ht 170.2 cm; Wt 56.8 kg
[~2020-03-10 14:45] MED LIST changes: +CARB-52 PO; -LEVE10002 PO; -ONDA4TAB6 PO; -ONDA8TAB6 PO; -PANT-47 PO
[2020-03-10 16:47] VITALS: BP 114/72
== END 2020-03-10 16:42 | disposition home or self-care (01) ==
LOC: ER 14:45
DX: S46.812A Strain of other muscles, fascia and tendons at shoulder and upper arm level, left arm, initial encounter (principal); R05 Cough; R51.9 Headache, unspecified; G89.29 Other chronic pain; F41.9 Anxiety disorder, unspecified; F32.9 Major depressive disorder, single episode, unspecified; F12.10 Cannabis abuse, uncomplicated; F15.10 Other stimulant abuse, uncomplicated; Z56.0 Unemployment, unspecified; Z88.0 Allergy status to penicillin; Z88.6 Allergy status to analgesic agent; Z88.2 Allergy status to sulfonamides; Z88.8 Allergy status to other drugs, medicaments and biological substances; Z79.899 Other long term (current) drug therapy; X58.XXXA Exposure to other specified factors, initial encounter; Y93.89 Activity, other specified; Y92.89 Other specified places as the place of occurrence of the external cause; Y99.8 Other external cause status
CPT/HCPCS: 71045; 99283

== ENCOUNTER 2023-07-17 06:28 | Emergency (ER) | payer MEDICARE, OTHER ==
[~2023-07-17] VITALS: Ht 172.7 cm; Wt 52.1 kg
[~2023-07-17 06:28] MED LIST changes: -CARB-52 PO; +LEVE10006 PO; +PANT40TA54 PO; +PHEN-403 PO; +PHEN100C12 PO
[2023-07-17] MEDS ORDERED: pantoprazole 40mg IV 80 MG in normal saline 100ml IV soln 100 ML IV ONE (07:30)
[2023-07-17] MEDS: morphine 4 MG/ML inj SYRINge IV ONE (07:30)
[2023-07-17] MEDS: pantoprazole 40 MG vial IV SCH (07:37)
[2023-07-17] MEDS: LORazepam 2 mg/ml vial IV ONE (07:46)
[2023-07-17] MEDS: normal saline 1000ML IV soln IVB ONE (07:50)
[2023-07-17] MEDS: ondansetron/PF 4mg/2ml inj IV ONE (07:56)
[2023-07-17] MEDS: metoclopramide 5 mg/ml inj IV ONE (07:56)
[2023-07-17 08:35] LABS: BASOPHILS % (AUTO) 0.3 % (0-1); EOSINOPHILS # (AUTO) 0.1 X10'3 (0-0.9); EOSINOPHILS % (AUTO) 0.9 % (0-6); HEMATOCRIT 39.3 % (42.0-52.0); HEMOGLOBIN 13.5 g/dl (14.0-17.9); LYMPHOCYTES # (AUTO) 0.4 X10'3 (1.1-4.8); LYMPHOCYTES % (AUTO) 4.1 % (21-51); MEAN CORPUSCULAR HEMOGLOBIN 33.9 PG (27.0-31.0); MEAN CORPUSCULAR HGB CONC 34.2 g/dL (33.0-36.5); MEAN PLATELET VOLUME 7.6 FL (7.4-10.4); MONOCYTES # (AUTO) 0.4 X10'3 (0-0.9); MONOCYTES % (AUTO) 3.7 % (2-12); NEUTROPHILS # (AUTO) 9.3 X10'3 (1.8-7.7); PLATELET COUNT 234 X10'3 (140-440); RED BLOOD COUNT 3.97 X10'6 (4.70-6.10); RED CELL DISTRIBUTION WIDTH 13.2 % (11.5-14.5); WHITE BLOOD COUNT 10.2 X10'3 (4.5-11.0)
[2023-07-17 09:26] LABS: LIPASE 67 U/L (16-77)
[2023-07-17 09:33] LABS: ETHANOL < 10 MG/DL (<10)
[2023-07-17 10:36] LABS: ALANINE AMINOTRANSFERASE 29 U/L (12-78); ALBUMIN 3.4 G/DL (3.4-5.0); ALKALINE PHOSPHATASE 105 IU/L (46-116); ANION GAP 9 (8-16); ASPARTATE AMINO TRANSFERASE 25 U/L (10-37); BILIRUBIN,TOTAL 0.4 MG/DL (0.1-1.0); BLOOD UREA NITROGEN 15 MG/DL (7-18); BUN/CREATININE RATIO 17.4 (10.0-20.0); CALCIUM 7.4 MG/DL (8.5-10.1); CHLORIDE 106 MMOL/L (99-107); CREATININE 0.86 MG/DL (0.60-1.10); GLUCOSE 95 MG/DL (70-104); POTASSIUM 4.1 MMOL/L (3.5-5.1); SODIUM 142 MMOL/L (135-145); TOTAL CARBON DIOXIDE 26.6 MMOL/L (24-32); TOTAL PROTEIN 6.7 G/DL (6.4-8.2); eCRCL 84 ML/MIN; eGFR > 90 ML/MIN
[2023-07-17 10:41] VITALS: PULSE 65
[2023-07-17] MEDS ORDERED: ONDA4TAB12 PO (11:44)
[2023-07-17] MEDS ORDERED: PANT40SU2 PO (11:44)
[2023-07-17 12:53] VITALS: BP 117/70; RESP 14; TEMP 98.6; O2SAT 97
[2023-07-17 12:57] LABS: BILIRUBIN,URINE NEGATIVE (Neg); CLARITY,URINE SLIGHTLY CLOUDY (Clear); COLOR,URINE YELLOW (Yellow); GLUCOSE, URINE NEGATIVE (Neg); KETONES,URINE NEGATIVE (Neg); LEUKOCYTE ESTERASE ,URINE NEGATIVE (Neg); NITRITES, URINE NEGATIVE (Neg); OCCULT BLOOD,URINE NEGATIVE (Neg); PH,URINE 7.5 (4.8-8.0); PROTEIN,URINE NEGATIVE (Neg); UROBILINOGEN,URINE 0.2 E.U/dL (0.2-1.0)
[2023-07-17 13:10] LABS: UA COLLECTION TYPE NON-SPECIFIED
[2023-07-17 13:14] LABS: BACTERIA,URINE NONE SEEN /HPF (Neg); RBC,URINE NONE SEEN /HPF (0-2); SQUAMOUS EPITHELIAL CELL,UR NONE SEEN /LPF (FEW); WBC,URINE NONE SEEN /HPF (0-4)
[2023-07-17 13:15] LABS: AMORPHOUS PHOSPHATES 1+
[2023-07-17 14:03] LABS: URINE AMPHETAMINE SCREEN NEGATIVE (Neg); URINE BARBITUATE SCREEN NEGATIVE (Neg); URINE BENZODIAZEPINES SCREEN NEGATIVE (Neg); URINE CANNABINOID SCREEN POSITIVE (Neg); URINE COCAINE SCREEN NEGATIVE (Neg); URINE METHADONE SCREEN NEGATIVE (Neg); URINE OPIATE SCREEN NEGATIVE (Neg); URINE PHENCYCLIDINE SCREEN NEGATIVE (Neg)
== END 2023-07-17 12:55 | disposition home or self-care (01) ==
LOC: ER 06:29
DX: R11.2 Nausea with vomiting, unspecified (principal); F41.9 Anxiety disorder, unspecified; F32.A Depression, unspecified; G89.29 Other chronic pain; Z88.0 Allergy status to penicillin; F12.90 Cannabis use, unspecified, uncomplicated; F15.90 Other stimulant use, unspecified, uncomplicated
CPT/HCPCS: 36415; 80053; 80305; 80320; 81001; 83690; 85025; 96365; 96375; 99284; C9113; J2060; J2405; J2765; J7030

== ENCOUNTER 2024-11-23 16:04 | Emergency (ER) | payer MEDICARE, OTHER ==
[~2024-11-23] VITALS: Ht 172.7 cm; Wt 50.8 kg
[~2024-11-23 16:04] MED LIST changes: +LEVE100023 PO; -LEVE10006 PO; +ONDA-243 PO; +PANT40SU2 PO
--- NOTE | 2024-11-23 17:07 | ELECTROCARDIOGRAPH REPORT ---
[facility] Test Date: 2024-11-23 Test Time: 17:05:34 Pat Name: JOHN RASHEED Department: [facility]- Patient ID: [facility]-[id number] Room: Gender: M Parasitologist: : 1985 Requested By: GEOVANNY PACKER Order Number: [id number] Reading MD: Dr. Venancio Shahid Measurements Intervals [place] Rate: 51 P: 52 [place]: 138 QRS: 71 QRSD: 94 T: 81 QT: 423 QTc: 390 Interpretive Statements Sinus bradycardia ST elev, probable normal early repol pattern Electronically Signed On 11-23-2024 20:10:[address] Venancio Shahid Please click the below link to view image of tracing.
[2024-11-23 17:12] LABS: MEAN PLATELET VOLUME 8.5 FL (7.4-10.4); RED CELL DISTRIBUTION WIDTH 15.2 % (11.5-14.5)
--- NOTE | 2024-11-23 17:16 | RADIOLOGY REPORT ---
CHEST RADIOGRAPH REASON FOR EXAM: Chest pain COMPARISON: CHEST,SINGLE VIEW on DOS: 08/05/20, CHEST,SINGLE VIEW on DOS: 03/10/20 TECHNIQUE: One view of the chest is provided FINDINGS: The cardiomediastinal silhouette is within normal limits for technique. There is mildly inc reased prominence of the markings in the right infrahilar region that may represent confluence of sha dows although subtle focal airspace disease is a consideration. There is no significant pleural effus ion. No acute bony abnormality is identified. IMPRESSION: There is mildly increased prominence of the markings in the right infrahilar region that may represen t confluence of shadows although subtle focal airspace disease is a consideration. correlate clinical ly and with physical exam.
[2024-11-23 17:33] LABS: CREATININE 0.81 MG/DL (0.60-1.10); PRO BRAIN NATRIURETIC PEPTIDE < 30 PG/ML (0-125); TOTAL CARBON DIOXIDE 28.1 MMOL/L (24-32); eCRCL 86 ML/MIN; eGFR > 90 ML/MIN
--- NOTE | 2024-11-23 18:20 | Physician Documentation ---
History of Present Illness ~ Chief Complaint: Seizure Stated Complaint: SEIZURES Time Seen by MD: 18:14 OK to notify your PCP?: Yes Primary Medical Doctor: DR FREDI PAIZ Source: patient, RN/, RN notes reviewed, old records Mode of Arrival: POV, Ambulatory Exam Limitations: no limitations HPI This patient has a history of grand mal seizures and focal seizures. Patient is has seizures frequently on multiple medications one is Keppra. On top of that the patient has been followed up at [facility] by Neurology. Patient has a brain lesion which is being worked up as well the plan is unclear possible surgical intervention. In addition to that patient has never been told to have a stimulator there has been no change in medications patient denies any fevers or chills no sick contacts no changes in medication no drugs or alcohol. Today patient has been confused trying to open car doors and take it apart rather than physically open the door. Patient presents with four five seizures. Patient just had an additional seizure in the ER. Which now makes it six. Patient's postictal which normally is not the situation he has presented like this in the past but it is unusual to have such as dance postictal presentation. Patient is moaning asking for help Medication Reconciliation Allergies: Coded Allergies: Penicillins (Verified Allergy, Intermediate, HIVES, 07/17/23) Sulfa (Sulfonamide Antibiotics) (Verified Allergy, Mild, RASH, 07/17/23) bee venom protein (honey bee) (Unverified Allergy, Unknown, 07/17/23) Scheduled Levetiracetam (Levetiracetam), 1 TAB PO Q12H, (Reported) Pantoprazole Sodium (PROTONIX tablet), 1 TAB PO BKF, (Reported) Phenytoin Sodium Extended (Phenytoin Sodium Extended), 3 CAP PO HS, (Reported) Phenytoin Sodium Extended (DILANTIN capsule), 2 CAP PO HS, (Reported) Discontinued Medications ONDANSETRON ODT 4mg tablet (Ondansetron Odt), 1 TAB PO Q6H PRN PRN for nausea/vomiting Discontinued Reason: patient no longer taking Pantoprazole Sodium (Protonix), 40 MG PO DAILY Discontinued Reason: patient no longer taking Past Medical History Past Medical History: Headache, Seizures, Chronic Pain, MRSA Abscess, Anxiety, Depression Past Surgical History: brain surgery, orthopedic surgeries, other Other Past Surgical History: reconstructive jaw Patient History: Patient reports no known family medical history. Other Past Family History: Stomach ulcers, Cancer (Unspecified) Smoking Status: Unknown if ever smoked Alcohol Use: None Drug Use: marijuana, methamphetamine Lives with: Spouse Lives In: Home Occupation: unemployed, disabled Review of Systems All Other Systems at this time: Reviewed and Negative Physical Exam Vital Signs: RN Vital Signs have been reviewed: Yes, Temperature: 96.9, Source: Temporal, Heart Rate: 55, Respiratory Rate: 20, BP: 118/74, Pulse Oximetry: 100, Weight: 50.800 Oxygen Flow Rate: 0 Physical Exam General: The patient is well developed, well nourished, nontoxic appearing and is in no acute distress. Skin: [place], warm and dry with no rashes. HEENT: Head was normocephalic and atraumatic. Eyes - pupils equal, round, reactive to light and accommodation. Extraocular movements were intact. Conjunctivae were nonicteric. The mouth and oropharynx were clear with moist mucous membranes. There were no pharyngeal exudates or erythema. Neck: Supple and nontender. There was no jugular venous distention, lymphadenopathy, thyromegaly or masses. Chest: Clear to auscultation bilaterally without wheezes, rales or rhonchi. No accessory muscle use. No dullness to percussion. Heart: Rate regular and rhythmic. S1, S2. No murmurs. Palpation of the chest wall was normal. No rubs or thrills. Abdomen: Soft, nontender and nondistended. Positive bowel sounds. No guarding or rebound. No hepatosplenomegaly or palpable masses. Extremities: No cyanosis, clubbing or edema. The patient moves all extremities. Pulses were equal and symmetric. Neurologic: Cranial nerves II-XII were intact. Sensation was intact to light touch throughout. Motor strength was 5/5 in all four extremities. Deep tendon reflexes were intact in both upper and lower extremities. Psychologic: The patient was oriented to person, place and time. The patient demonstrated appropriate judgement and insight. Progress Progress Note 1804: Spoke to on-call neurologist who stays the patient does need admission based on there symptoms. Does not agree with EEG monitoring unless they are intubated. Recommended treating patient as if they are having grand mal seizures. 2030: Spoke again with neurologist who state that patient is on a waiting list. Reviewed labs and safe that if patient's mentation improves they do not feel a transfer to another facility as necessary. 2153: This is left with the ICU who were dealing with a critical patient and stated they would call back within the next 15 minutes. 2203: Case discussed with ICU who states that because patient not intubated and protecting his airway; patient more appropriate for ICU 2209: Paged Hospitalist Results/Orders Reviewed/noted all lab results: Yes Results/Orders Orders - VENANCIO SHAHID MD Alex Prov.Neuro Consult (11/23/24 18:21) To Page (11/23/24 18:21) Please Get Medical Records (11/23/24 18:21) Ct Head (11/23/24 20:16) Urinalysis, Cult If Indicated (11/23/24 19:25) Drug Screen, Urine (11/23/24 19:25) Ct Cervical Spine (11/23/24 20:16) Hospitalist Icu Consultation (11/23/24 21:39) Fill Out Med Reconciliation (11/23/24 21:39) To Page (11/23/24 21:39) Page Hospitalist (11/23/24 22:09) Fill Out Med Reconciliation (11/23/24 22:09) Completed Orders - VENANCIO SHAHID MD Diazepam Inj (Valium Inj) (11/23/24 18:40) Levetiracetam Inj (Keppra Inj) (11/23/24 18:51) Ct Head (11/23/24 20:16) Lorazepam Inj (Ativan Inj) (11/23/24 19:24) Pt Inr (11/23/24 19:25) PTT (11/23/24 19:25) Ondansetron Inj. (Zofran 4mg/2ml Vial) (11/23/24 19:30) Ct Cervical Spine (11/23/24 20:16) Fosphenytoin 500mg Inj. (Cerebyx Inj) (11/23/24 21:40) Phenytoin (11/23/24 21:37) Fosphenytoin 500mg Inj. (Cerebyx Inj) (11/23/24 21:47) Vital Signs 11/23/24 11/23/24 11/23/24 7/28/25 16:29 16:45 17:50 18:54 Temp 96.9 96.9 96.9 Pulse 58 55 74 Resp 16 18 20 20 B/P (MAP) 116/75 118/74 (89) 118/67 (84) Pulse Ox 100 100 98 O2 Flow Rate 0 0 3.0 11/23/24 11/23/24 21:06 21:51 Temp 96.9 96.9 Pulse 67 64 Resp 14 14 B/P (MAP) 93/62 (72) 95/70 (78) Pulse Ox 95 95 O2 Flow Rate 0 0 Laboratory Tests Test 11/23/24 16:54 11/23/24 19:00 11/23/24 19:39 11/23/24 21:47 White Blood Count 6.3 Red Blood Count 4.68 L Hemoglobin 14.4 Hematocrit 42.9 Mean Corpuscular Volume 91.8 Mean Corpuscular Hemoglobin 30.7 Mean Corpuscular Hemoglobin Concent 33.5 Red Cell Distribution Width 15.2 H Platelet Count 278 Mean Platelet Volume 8.5 Neutrophils (%) (Auto) 70.2 Lymphocytes (%) (Auto) 21.0 Monocytes (%) (Auto) 6.4 Eosinophils (%) (Auto) 1.0 Basophils (%) (Auto) 1.4 H Neutrophils # (Auto) 4.4 Lymphocytes # (Auto) 1.3 Monocytes # (Auto) 0.4 Eosinophils # (Auto) 0.1 Basophils # (Auto) 0.1 CBC Comment Sodium Level 137 Potassium Level 4.0 Chloride Level 101 Carbon Dioxide Level 28.1 Anion Gap 8 Blood Urea Nitrogen 11 Creatinine 0.81 Estimated GFR/1.73 m2 > 90 BUN/Creatinine Ratio 13.6 Glucose Level 99 Calcium Level 8.9 Magnesium Level 2.1 Total Bilirubin 0.5 Direct Bilirubin 0.1 Aspartate Amino Transf (AST/SGOT) 26 Alanine Aminotransferase (ALT/SGPT) 32 Alkaline Phosphatase 84 Total Creatine Kinase 233 Creatine Kinase MB 1.6 Creatine Kinase MB Relative Index 0.7 Myoglobin 74.0 Troponin I High Sensitivity < 4 L 4 Troponin I High Sens Percent Delta Troponin I Hi Sens Absolute Change Pro-B-Type Natriuretic Peptide < 30 Total Protein 7.8 Albumin 4.2 Globulin 3.6 Albumin/Globulin Ratio 1.2 Chemistry Comments Phenytoin (Dilantin) Level 1.1 L 0.5 L Ethyl Alcohol Level < 10 Prothrombin Time 11.1 INR International Normalized Ratio 1.1 Activated Partial Thromboplast Time 24 Coagulation Comments Re-Evaluation Re-Evaluation : Re-Evaluation: Improved, Unchanged Progress Patient was seen and examined. Patient was given reassurance specifically family since the patient has a bit altered. Laboratory work was obtained CBC was within normal limits no signs of infection. Chemistry LFTs troponins including CPK for possible rhabdo were all within normal limits. Tox screen nitro was negative for alcohol. Dilantin phenytoin levels was low at 1.1. Patient started to improve. The plan was for MRI after talking to Neurology but also consulting with [facility] regarding the patient's mass and presentation. Later patient was given a room at [facility] in the patient was then transferred by air transport emergently. There was no tentative plan for emergent surgery to the brain mass causing seizures. This is a complicated patient because the patient may need a continuous EEG but it was later thought despite EEG would be fine. Nevertheless [facility] accepted the patient and was then flown. Continuous residential monitor interpretation shows normal sinus rhythm heart rate 60s, no ectopy, normal, my interpretation. Pulse oximetry monitor interpretation shows normal oxygenation 99% room air, normal, my interpretation. EKG/XRAY/CT/US/VASC/MRI EKG : Intepreting Monitor?: Yes Additional Comment [facility] Test Date: 2024-11-23 Test Time: 17:05:34 Pat Name: JOHN RASHEED Department: [facility]- Patient ID: [facility]-[id number] Room: Gender: Consulting Nurse: : 1985 Requested By: GEOVANNY PACKER Order Number: [id number] Reading MD: Dr. Venancio Shahid Measurements Intervals [place] Rate: 51 P: 52 [place]: 138 QRS: 71 QRSD: 94 T: 81 QT: 423 QTc: 390 Interpretive Statements Sinus bradycardia ST elev, probable normal early repol pattern Electronically Signed On 11-23-2024 20:10:[address] Venancio Shahid Chest X-Ray : Additional Comments CHEST RADIOGRAPH REASON FOR EXAM: Chest pain COMPARISON: CHEST,SINGLE VIEW on DOS: 08/05/20, CHEST,SINGLE VIEW on DOS: 03/10/20 TECHNIQUE: One view of the chest is provided FINDINGS: The cardiomediastinal silhouette is within normal limits for technique. There is mildly increased prominence of the markings in the right inf rahilar region that may represent confluence of shadows although subtle focal airspace disease is a consideration. There is no significant pleural effusion. No acute bony abnormality is identified. IMPRESSION: There is mildly increased prominence of the markings in the right infrahilar region that may represent confluence of shadows although subtle focal airspace disease is a consideration. correlate clinically and with physical exam. Electronically Signed by:ALESSANDRO GOODWIN MD CT #1: CT: head With Contrast?: No Impression EXAM: CT CT HEAD INDICATION: aloc TECHNIQUE: CT of the head without intravenous contrast. Radiation Dose Information: CT Dose: CTDI volume is 68.97 mGy. Dose-length product is 1300.55 mGy*cm The dose indicators for CT are the volume Computed Tomography (CT) Dose Index (CTDIvol) and the Dose Length Product (DLP), and are measured in units of mGy and mGy-cm, respectively. These indicators are not patient dose, but values generated from the CT scanner acquisition factors. The report includes radiation exposure data for exposures received during this examination. COMPARISON: CT HEAD on DOS: 08/05/20 FINDINGS: Evaluation is degraded by motion artifact and positioning. The cerebral parenchyma appears to be normal configuration and attenuation. The ventricles, cisterns, and sulci appear age-appropriate. There is no evidence for acute territorial infarct, hemorrhage, or mass effect. The orbits are normal. The visualized paranasal sinuses and mastoid air cells are clear. The soft tissues and osseous structures appear within normal limits. IMPRESSION: 1. Limited evaluation without acute territorial infarct, intracranial hemorrhage, or mass effect. If clinical symptoms persist, MRI may be beneficial in further evaluation. Electronically Signed by:CHADWICK MCNAMARA MD Date & Time: 11/23/242016 CT #2: CT: C-spine With Contrast?: No Impression EXAM: CT CT CERVICAL SPINE INDICATION: fall, neck pain EXAM DATE: 11/23/2024 07:52 PM COMPARISON: None TECHNIQUE: Multiple axial CT images of the cervical spine were obtained using bone algorithm. Axial and coronal reformatting was done. Bone and soft tissue windows were reviewed. Radiation Dose Information: CT Dose: CTDI volume is 12.93 mGy. Dose-length product is 348.18 mGy*cm FINDINGS: Evaluation is suboptimal due to positioning. Within this limitation, there is no CT evidence of acute displaced fracture. There is no high-grade spinal canal or neural foraminal stenosis. The paraspinal soft tissues are unremarkable. There is pleural-parenchymal scarring and mild emphysema of the lung apices. IMPRESSION: 1. No acute displaced fracture. 2. All CT scans at this medical facility are performed using dose modulation techniques as appropriate to a performed exam including the following: Automated exposure control was utilized; adjustment of the MA and/or KV according to patient size; and use of iterative reconstruction technique. Electronically Signed by:CHADWICK MCNAMARA MD Date & Time: 11/23/242020 Medical Decision Making Additional info obtained from: old records Differential Dx:Considerations: Include: Hyperventilation, Psychogenic seizure, Due to alcohol withdrawl, Anticonvulsant withdrawl, Due to closed head injury, Due to CVA/TIA, Due to drug ingestion, Due to hypocalcemia, Due to hypoglycemia, Due to hyponatremia, Due to hypoxemia, Idiopathic, Due to mass lesion, Syncope, Encephalopathy, Epilepsy-break through, Epilepsy-status, Other Departure Disposition: 02 SHORT TERM HOSPITAL Impression: Primary Impression: Status epilepticus Condition: Critical Referrals: NO PRIMARY CARE PROVIDER (PCP) Education Educated: Patient, Family Educated regarding: diagnosis, treatment Critical Care Note Total Time (mins): 95 Critical Care Note The very real possibility of a deterioration of this patient's condition required the highest level of my preparedness for sudden, emergent intervention. I provided critical care services, which included medication orders, frequent reevaluations of the patient's condition and response to treatment, ordering and reviewing test results, and discussing the case with various consultants. Excludes time spent performing separately billable procedures. The critical care time associated with the care of the patient was. 95 minutes Signature Scribe Signature: Scribed for Venancio Shahid MD by Uma Haider 11/23/24 22:07 Attestation: The note accurately reflects work and decisions made by me.Venancio Shahid MD 11/23/24 18:20 VENANCIO SHAHID MD Nov 23, 2024 18:20
--- NOTE | 2024-11-23 18:36 | [facility] CONSULT REPORT ---
[facility] Procedure Note [facility] Procedure Note Consult [facility] Note # Demographics Consult Type: General Neurology Patient Location: Emergency Room First Name: JOHN Last Name: KATHYA Date of : 1985 Age: 39 Gender: Male Facility: [facility] Time of Initial Page ([place] ): 11/23/2024 18:25 Time of Return Call ([place] ): 11/23/2024 18:25 # HPI History: 39yom with seizure history (on Keppra, phenytoin) who p/w breakthrough seizure and multiple focal seizures. He has been compliant with medications but unclear what medications he is on. # Exam Language: moaning, no intelligible speech Cranial Nerves: - extra ocular movements intact Motor: moving spontaneously Sensory: - normal sensation # Assessment Impression: Breakthrough seizures commonly resulting secondary to medication non-compliance, acute medical illness such as infection or metabolic abnormality, or sleep deprivation. # Plan Labs: - CBC - comprehensive metabolic panel - thiamine - ua - urine drug screen Basic infectious and metabolic workup Magnesium Imaging: (urgency: routine): - MRI Brain with AND without contrast Diagnostic Test: LTEEG Medication: Keppra load of 60mg/kg max 4.5g Restart home meds, will likely need to increase one of these medications Other: - If patient has any neurological deterioration please call me back immediately - seizure precautions - Please check routine labs and studies to rule out infection or metabolic abnormality (CBC, BMP, LFTs, magnesium, UA, B-HCG, CXR) and treat as appropriate - Give 2 grams IV magnesium sulfate for serum magnesium <= 1.8, optimize other electrolytes - May consider brief course of Ativan as temporizing measure (1 mg BID x 2 days) if provoking factor such as infection, medication noncompliance, or metabolic abnormality is found - Avoid epileptogenic medications such as wellbutrin, cefepime, ultram, quinolones, and imipenum - Seizure precautions, including appropriate state law prohibiting driving, avoiding heights, tubs/swimming pools and standing over open flames - Transfer to [facility] with inpatient neurology # Logistics Attestation of consult completion: The patient is located at: [facility]. Facility staff participated in the visit. I performed this telemedicine visit from my offsite office utilizing interactive 2 way audio and visual telecommunication technology. Total time spent in telemedicine encounter: I spent 27 minutes reviewing clinical data and/or imaging, obtaining history, examining the patient, communicating with the onsite care team, and in preparation of this report. # Demographics First Name: JOHN Last Name: KATHYA Facility: [facility] Consult Order placed for: Yes NELSON SERRANO MD Nov 23, 2024 18:36
[2024-11-23] MEDS ORDERED: levetiracetam-NACL1000mg/100ml 100 ML IV SCH (18:40)
[2024-11-23] MEDS ORDERED: NORMAL SALINE IV ONE ×2 (18:45)
[2024-11-23] MEDS ORDERED: LEVETIRACETAM IV ONE ×2 (18:45)
[2024-11-23] MEDS: diazepam inj 5 MG/ML inj. IV ONE (18:51)
[2024-11-23] MEDS: LEVETIRACETAM IV ONE (19:16)
[2024-11-23] MEDS: NORMAL SALINE IV ONE (19:16)
[2024-11-23] MEDS: ondansetron/PF 4mg/2ml inj IV ONE (19:37)
[2024-11-23 20:13] LABS: APTT 24 SECONDS (22-32); INR 1.1 INR
--- NOTE | 2024-11-23 20:20 | RADIOLOGY REPORT ---
EXAM: CT CT HEAD INDICATION: aloc TECHNIQUE: CT of the head without intravenous contrast. Radiation Dose Information: CT Dose: CTDI volume is 68.97 mGy. Dose-length product is 1300.55 mGy*cm The dose indicators for CT are the volume Computed Tomography (CT) Dose Index (CTDIvol) and the Dose Length Product (DLP), and are measured in units of mGy and mGy-cm, respectively. These indicators are not patient dose, but values generated from the CT scanner acquisition factors. The report includes radiation exposure data for exposures received during this examination. COMPARISON: CT HEAD on DOS: 08/05/20 FINDINGS: Evaluation is degraded by motion artifact and positioning. The cerebral parenchyma appears to be normal configuration and attenuation. The ventricles, cisterns , and sulci appear age-appropriate. There is no evidence for acute territorial infarct, hemorrhage, or mass effect. The orbits are normal. The visualized paranasal sinuses and mastoid air cells are clear. The soft t issues and osseous structures appear within normal limits. IMPRESSION: 1. Limited evaluation without acute territorial infarct, intracranial hemorrhage, or mass effect. If clinical symptoms persist, MRI may be beneficial in further evaluation.
--- NOTE | 2024-11-23 20:24 | RADIOLOGY REPORT ---
EXAM: CT CT CERVICAL SPINE INDICATION: fall, neck pain EXAM DATE: 11/23/2024 07:52 PM COMPARISON: None TECHNIQUE: Multiple axial CT images of the cervical spine were obtained using bone algorithm. Axial a nd coronal reformatting was done. Bone and soft tissue windows were reviewed. Radiation Dose Information: CT Dose: CTDI volume is 12.93 mGy. Dose-length product is 348.18 mGy*cm FINDINGS: Evaluation is suboptimal due to positioning. Within this limitation, there is no CT evidence of acute displaced fracture. There is no high-grade spinal canal or neural foraminal stenosis. The paraspinal soft tissues are unremarkable. There is pleural-parenchymal scarring and mild emphysema of the lung apices. IMPRESSION: 1. No acute displaced fracture. 2. All CT scans at this medical facility are performed using dose modulation techniques as appropriat e to a performed exam including the following: Automated exposure control was utilized; adjustment of the MA and/or KV according to patient size; and use of iterative reconstruction technique.
[2024-11-23 21:19] LABS: CREATINE KINASE MB 1.6 ng/ml (0.3-3.6)
[2024-11-23 21:21] LABS: MYOGLOBIN 74.0 ng/ml (16-96)
[2024-11-23 21:22] LABS: ETHANOL < 10 MG/DL (<10)
[2024-11-23] MEDS ORDERED: FOSphenytoin 500mg inj. 1,000 MG in normal saline 100ml IV soln 80 ML IV ONE (21:40)
[2024-11-23] MEDS: FOSphenytoin 500mg inj. 1,000 MG in normal saline 100ml IV soln 100 ML IV ONE (23:18)
[2024-11-24 01:21] VITALS: BP 99/52; PULSE 64; RESP 10; O2SAT 98
[2024-11-24 02:23] VITALS: TEMP 96.9
[2024-11-24] MEDS ORDERED: LEVE100023 PO (12:06)
[2024-11-24] MEDS ORDERED: PANT-47 PO (12:08)
== END 2024-11-24 02:33 ==
LOC: ER 16:04 → ED HOLD 22:22 → UNDOADMIN 22:22 → UNDODISIN 11-24 02:23
DX: G40.801 Other epilepsy, not intractable, with status epilepticus (principal); F12.90 Cannabis use, unspecified, uncomplicated; F15.90 Other stimulant use, unspecified, uncomplicated; F41.9 Anxiety disorder, unspecified; F32.A Depression, unspecified; Z88.0 Allergy status to penicillin; Z88.2 Allergy status to sulfonamides; Z91.030 Bee allergy status; Z79.899 Other long term (current) drug therapy; Z56.0 Unemployment, unspecified
CPT/HCPCS: 36415; 70450; 71045; 72125; 80048; 80076; 80185; 82550; 82553; 83735; 83874; 83880; 84484; 85025; 85610; 85730; 93005; 96365; 96375; 99291; A4615; A4620; G0480; J1953; J2060; J2405; J3360; J7050; Q2009; 80320; 99285; G0378